=== PATIENT | female | born 1985 ===

== ENCOUNTER 2017-03-31 13:30 | Inpatient (IN) | payer OTHER ==
[2017-03-31] MEDS ORDERED: Sodium Chloride 0.9% 1,000 ML IV STA (15:20)
--- NOTE | 2017-03-31 15:20 | C.PDOC ---
History Of Present Illness 32 y/o F 7 weeks p/w nausea and vomiting x weeks. Has been on diclegis without improvement. Patient feels generally weak and dehydrated. Denies fever, chills, chest pain, dyspnea, abdominal pain, vaginal bleeding, diarrhea. Time Seen by Provider: 03/31/17 14:59 Chief Complaint (Nursing): GI Problem Past Medical History Vital Signs: Last Vital Signs Temp 99.1 F 03/31/17 17:39 Pulse 97 H 03/31/17 17:39 Resp 20 03/31/17 17:39 BP 112/78 03/31/17 17:39 Pulse Ox 98 03/31/17 18:05 Family History: States: No Known Family Hx - Social History Hx Alcohol Use: No Hx Substance Use: No - Immunization History Hx Tetanus Toxoid Vaccination: No Hx Influenza Vaccination: No Hx Pneumococcal Vaccination: No Review Of Systems Except As Marked, All Systems Reviewed And Found Negative. Constitutional: Negative for: Fever Respiratory: Negative for: Shortness of Breath Physical Exam - Physical Exam Additional Physical Exam Comments: Gen: NAD Head: NC Eyes: Sunken ENT: Dry MM Neck: Supple CV: Tachycardic, cap refill < 2 seconds Lungs: CTA b/l Abd: Soft, NT Extremities: No swelling Neuro: Alert, no focal deficit ED Course And Treatment - Laboratory Results Result Diagrams: 03/31/17 15:23 03/31/17 15:23 O2 Sat by Pulse Oximetry: 98 Medical Decision Making Medical Decision Making: Dr. Villegas accepts patient to her service for further hydration and IV antiemetic. Disposition Discussed With : Saige Villegas Doctor Will See Patient In The: Hospital - Disposition Disposition: HOSPITALIZED Disposition Time: 15:21 Condition: FAIR - Clinical Impression Clinical Impression: Hyperemesis gravidarum
[2017-03-31 15:30] LABS: BASO # 0.1 K/uL (0.0-0.2); BASO % 0.6 % (0.0-2.0); EOS % 0.4 % (0.0-4.0); HEMOGLOBIN 13.4 g/dL (11.0-16.0); LYMPH # 1.9 K/uL (1.0-4.3); LYMPH % 17.8 % (20.0-40.0); MEAN CELL VOLUME 88.9 fL (81.0-99.0); MEAN CORPUSCULAR HEMOGLOBIN 31.9 pg (27.0-31.0); MEAN CORPUSCULAR HGB CONC 35.9 g/dL (33.0-37.0); MEAN PLATELET VOLUME 9.4 fL (7.2-11.7); MONO # 0.8 K/uL (0.0-0.8); MONO % 7.2 % (0.0-10.0); NEUT # 7.9 K/uL (1.8-7.0); RBC 4.19 Mil/uL (3.80-5.20); RED CELL DISTRIBUTION WIDTH 12.6 % (11.5-14.5); WHITE BLOOD COUNT 10.7 K/uL (4.8-10.8)
[2017-03-31 15:42] LABS: ALB/GLOB RATIO 1.1 (1.0-2.1); ALBUMIN 4.1 g/dL (3.5-5.0); ALT/SGPT 19 U/L (9-52); AST/SGOT 22 U/L (14-36); BLOOD UREA NITROGEN 13 mg/dL (7-17); CALCIUM 9.3 mg/dl (8.6-10.4); GFR AFRICAN-AMERICAN > 60; GFR NON-AFRICAN AMERICAN > 60
--- NOTE | 2017-03-31 17:32 | US ---
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 Comparison: None available. Technique: Transabdominal pelvic ultrasound Findings: The uterus measures approximately 15.4 x 5.8 x 7.3 cm. Anteverted. Cervix length measures approximately 4.3 cm. There is a single intrauterine fetus present. 4 mm yolk sac. The gestational sac measures 4 cm and is compatible with a gestational age of 9 weeks 2 days. The crown-rump length measures 1.9 cm and is compatible with a gestational age of 8 weeks 3 days. There is heart motion which measured 176 BPM. The right ovary measures 3.1 x 1.7 x 2.9 cm. The left ovary measures 3.8 x 1.8 x 3.4 cm. Blood flow was demonstrated to both ovaries. Impression: Live single intrauterine with estimated gestational age 9 weeks 2 days by gestational sac calculation and 8 weeks 3 days by crown-rump length calculation. heart rate 176 bpm. Advise an anomaly screen at 16-18 weeks gestational age
[2017-03-31] MEDS ORDERED: Sodium Chloride 0.9% 1,000 ML IV SCH (19:00)
[2017-04-01] MEDS ORDERED: Multivitamin (MVI) 10 ML, Thiamine 100 MG, Folic Acid 1 MG in Sodium Chloride 0.9% 1,00... IV ONE (07:45)
[2017-04-01 08:26] LABS: SQUAMOUS EPITHIAL 1 /hpf (0-5); URINE BILIRUBIN NEGATIVE (NEGATIVE); URINE BLOOD NEGATIVE (NEGATIVE); URINE CLARITY Clear (Clear); URINE COLOR Yellow (YELLOW); URINE GLUCOSE (UA) NORMAL (Normal); URINE LEUKOCYTE ESTERASE NEG Leu/uL (Negative); URINE NITRATE NEGATIVE (NEGATIVE); URINE PROTEIN NEGATIVE (NEGATIVE)
--- NOTE | 2017-04-01 08:32 | PCM.SURG1 ---
Surgeon's Initial Post Op Note - Surgeon's Notes Surgeon: Saige Villegas MD Processing Rep: none Type of Anesthesia: General LMA Pre-Operative Diagnosis: Cervical intraeptihelia neoplasia RONALDO 3 Operative Findings: araml bipoys 1 oclcok, multiparous short cervix. urine 50cc clear yellow urine. specment ecto and edocervica removed, good hemostaiss Post-Operative Diagnosis: same as above Operation Performed: Loop electrosurgical exicsion procedure, endocerviacl currettage Specimen/Specimens Removed: ectocervix, endocervix, endocervical currettage Estimated Blood Loss: EBL {In ML}: 5 Blood Products Given: N/A Drains Used: No Drains Post-Op Condition: Good Date of Surgery/Procedure: 04/01/17 Time of Surgery/Procedure: 08:00
--- NOTE | 2017-04-01 10:41 | CP.PCM.HP ---
History of Present Illness - History of Present Illness History of Present Illness: Delyaed etnry 32 y/o @ 8= wks with perseinst nuase and vomiitng, failed outpatient regiment feelign weak and tired, with 3-5 times of non bloody non bilous ememse and refered to er for evauatin. pt rperots has failed vitamin b6, uncoms, zofran po, diclegis not covered with metoclompramed. Pt reports had severe nausevomiting last as wel.. OB: x 1, hx of molar YE[employer]: tushar PMH Henies PSH: iliana CH:D non tributiroy SHX: negative etoh/tobacco/drugs meds; vitma ib6, pnv, diclege, unozo, zofrna Present on Admission - Present on Admission Any Indicators Present on Admission: No Review of Systems - Constitutional Constitutional: As Per HPI - EENT Eyes: As Per HPI Ears: As Per HPI Nose/Mouth/Throat: As Per HPI - Cardiovascular Cardiovascular: As Per HPI Past Patient History - Infectious Disease Hx of Infectious Diseases: None - Past Medical History & Family History Past Medical History?: No - Past Social History Smoking Status: Never Smoked Alcohol: None Domestic Violence: Negative - CARDIAC Hx Cardiac Disorders: No - PULMONARY Hx Respiratory Disorders: No - NEUROLOGICAL Hx Neurological Disorder: No - ENDOCRINE/METABOLIC Hx Endocrine Disorders: No - HEMATOLOGICAL/ONCOLOGICAL Hx Blood Disorders: No Hx Blood Transfusions: No - MUSCULOSKELETAL/RHEUMATOLOGICAL Hx Musculoskeletal Disorders: No Hx Falls: No - GASTROINTESTINAL Hx Gastrointestinal Disorders: No - GENITOURINARY/GYNECOLOGICAL Hx Hematuria: No Other/Comment: Molar - PSYCHIATRIC Hx Substance Use: No - SURGICAL HISTORY Hx Surgeries: No - ANESTHESIA Hx Anesthesia: No Hx Anesthesia Reactions: No Meds Allergies/Adverse Reactions: Allergies Allergy/AdvReac Type Severity Reaction Status Date / Time No Known Allergies Allergy Verified 03/31/17 14:30 Physical Exam - Constitutional Appears: Well, Non-toxic - Head Exam Head Exam: ATRAUMATIC, NORMAL INSPECTION - Eye Exam Eye Exam: EOMI, Normal appearance - ENT Exam ENT Exam: Mucous Membranes Moist - Neck Exam Neck exam: Positive for: Normal Inspection - Respiratory Exam Respiratory Exam: Clear to Auscultation Bilateral, NORMAL BREATHING PATTERN - Cardiovascular Exam Cardiovascular Exam: REGULAR RHYTHM, +S1, +S2 - GI/Abdominal Exam GI & Abdominal Exam: Normal Bowel Sounds, Soft Additional comments: non tneder, no guaridng, no bourend tendnere no rigiyt Results - Vital Signs Recent Vital Signs: Last Vital Signs Temp 100.1 F H 04/01/17 08:06 Pulse 84 04/01/17 08:06 Resp 18 04/01/17 08:06 BP 94/61 L 04/01/17 08:06 Pulse Ox 99 04/01/17 08:06 - Labs Result Diagrams: 03/31/17 15:23 03/31/17 15:23 Labs: Laboratory Results - last 24 hr 03/31/17 03/31/17 04/01/17 15:23 15:23 07:47 WBC 10.7 RBC 4.19 Hgb 13.4 Hct 37.2 MCV 88.9 MCH 31.9 H MCHC 35.9 RDW 12.6 Plt Count 271 MPV 9.4 Neut % (Auto) 74.0 Lymph % (Auto) 17.8 L George % (Auto) 7.2 Eos % (Auto) 0.4 Baso % (Auto) 0.6 Neut # (Auto) 7.9 H Lymph # (Auto) 1.9 George # (Auto) 0.8 Eos # (Auto) 0.0 Baso # (Auto) 0.1 Sodium 131 L Potassium 3.5 L Chloride 93 L Carbon Dioxide 29 Anion Gap 12 BUN 13 Creatinine 0.6 L Est GFR ( Amer) > 60 Est GFR (Non-Af Amer) > 60 Random Glucose 115 H Calcium 9.3 Total Bilirubin 0.7 AST 22 ALT 19 Alkaline Phosphatase 54 Total Protein 8.0 Albumin 4.1 Globulin 3.9 Albumin/Globulin Ratio 1.1 Urine Color Yellow Urine Clarity Clear Urine pH 7.0 Ur Specific [place] 1.014 Urine Protein Negative Urine Glucose (UA) Normal Urine Ketones 1+ H Urine Blood Negative Urine Nitrate Negative Urine Bilirubin Negative Urine Urobilinogen 4.0 H Ur Leukocyte Esterase Neg Urine WBC (Auto) 2 Urine RBC (Auto) 3 Ur Squamous Epith Cells 1 Assessment & Plan (1) Hyperemesis gravidarum Assessment and Plan: 32 y/o @ 8+ wks with severe nause, vomitng in 1. admit ot rn gynecology 2. Diet; NPO, will advance as toelrated to clears etc 3. Labs; CBC, CMP, Amyplas, lipaes, UA 4. IVH Bananoma bag @ 125cc/hr 5. IV zofran 4mg q 4 hour s--> sublingual 6. Enoucrage mabution 7. SCD DVT prophyxis 8. Daily weights 9. US: vialbity Status: Acute
[2017-04-02 00:03] VITALS: BP 102/65; PULSE 83; RESP 20; TEMP 99.1; O2SAT 98
[2017-04-02 07:32] LABS: BASO % 0.5 % (0.0-2.0); EOS # 0.2 K/uL (0.0-0.7); EOS % 1.8 % (0.0-4.0); HEMOGLOBIN 11.7 g/dL (11.0-16.0); LYMPH # 1.9 K/uL (1.0-4.3); LYMPH % 22.9 % (20.0-40.0); MEAN CORPUSCULAR HEMOGLOBIN 31.7 pg (27.0-31.0); MEAN CORPUSCULAR HGB CONC 35.6 g/dL (33.0-37.0); MEAN PLATELET VOLUME 9.2 fL (7.2-11.7); MONO # 0.5 K/uL (0.0-0.8); MONO % 6.6 % (0.0-10.0); NEUT # 5.6 K/uL (1.8-7.0); NEUT % 68.2 % (50.0-75.0); NRBC % 0.1 % (0.0-2.0); RBC 3.69 Mil/uL (3.80-5.20); RED CELL DISTRIBUTION WIDTH 12.3 % (11.5-14.5); WHITE BLOOD COUNT 8.3 K/uL (4.8-10.8)
[2017-04-02 07:59] LABS: ALBUMIN 3.4 g/dL (3.5-5.0); ALT/SGPT 27 U/L (9-52); AST/SGOT 22 U/L (14-36); BLOOD UREA NITROGEN 5 mg/dL (7-17); CALCIUM 8.7 mg/dl (8.6-10.4); GFR AFRICAN-AMERICAN > 60; GFR NON-AFRICAN AMERICAN > 60
[2017-04-02] MEDS ORDERED: Multivitamin (MVI) 10 ML, Thiamine 100 MG, Folic Acid 1 MG in Sodium Chloride 0.9% 1,00... IV ONE (10:33)
== END 2017-04-02 17:30 | disposition home or self-care (01) | DRG 781 ==
LOC: C.ER 13:30 → C.4M 15:57
PROVIDERS: ADMIT Obstetrics & Gynecology; ATTEND Obstetrics & Gynecology
DX: O21.1 Hyperemesis gravidarum with metabolic disturbance (principal); Z3A.09 9 weeks gestation of pregnancy

== ENCOUNTER 2017-10-26 03:40 | Inpatient (IN) | payer OTHER, MEDICAID ==
--- NOTE | 2017-10-26 04:40 | OBADHP ---
Datetime: 10/26/2017 04:22 Admit Comment, IP Provider: 37 y/o at 38.6 wks presents with c/o LOF around 1:30 am and pain ful ctx started aroiund the same time. Pt has no cother complaints today. Pt received PNC with Dr amber adams. PMH: adan PSH: D_C for molar POBH: x 1 ALL:NKDA Labs: O positive, RPRP NR, HIV NR, Hep B Negativem Rubella immune A/P : 37 y/o at 38.5 wks with SROM Admit to L_D Bllod work IVF monitoring and toco Inform Dr Villegas Anticipate Pelvic Type - PN: Adequate Extremities - PN: Normal Abdomen - PN: Normal Back - PN: Normal Breast - PN: Normal Lungs - PN: Normal Heart - PN: Normal Thyroid - PN: Normal Neurologic - PN: Normal HEENT - PN: Normal General - PN: Normal Presentation-Admit: Vertex FHR - Baseline A Provider: 130 Amniotic Fluid Color, Provider: Clear Membranes, Provider: Ruptured Contraction Comments Provider: every 4 min Comments, ACOG Physical Exam: ABD: Soft, NT EXTR: No calf tenderness SSE: Pooling VE: 3/80/-2 Gestation - Est Wks by US: 38.6 Pool Provider: Positive Nitrazine Provider: Positive Vital Signs Provider: Reviewed; Within Normal Limits IP Chief Complaint: Uterine contractions; Suspected ruptured membranes NICHD Variability Prov Fetus A: Moderate 6-25bpm NICHD Accel Fetus A IP Provider: [id number] FHR Category Provider Fetus A: Category I NICHD Decel Fetus A IP Provider: Early Dilatation, Provider: 3 Effacement, Provider: 80 Station, Provider: -2 Genitourinary Exam: Normal DTRs - PN: Normal EGA AdmitDate IP: 38.5 IP Adm Impression: Term, intrauterine ; Ruptured Membranes IP Admit Plan: Initiate labor protocol
[2017-10-26] MEDS ORDERED: Lactated Ringer's 1,000 ML IV ONE (04:45)
[2017-10-26] MEDS ORDERED: Lactated Ringer's 1,000 ML IV SCH (04:45)
[2017-10-26 05:18] LABS: BASO # 0.1 K/uL (0.0-0.2); BASO % 0.8 % (0.0-2.0); EOS # 0.1 K/uL (0.0-0.7); EOS % 1.2 % (0.0-4.0); HEMOGLOBIN 11.7 g/dL (11.0-16.0); LYMPH # 1.8 K/uL (1.0-4.3); LYMPH % 19.4 % (20.0-40.0); MEAN CELL VOLUME 88.7 fL (81.0-99.0); MEAN CORPUSCULAR HEMOGLOBIN 30.9 pg (27.0-31.0); MEAN CORPUSCULAR HGB CONC 34.9 g/dL (33.0-37.0); MONO # 0.8 K/uL (0.0-0.8); MONO % 8.9 % (0.0-10.0); NEUT # 6.5 K/uL (1.8-7.0); NEUT % 69.7 % (50.0-75.0); NRBC % 0.2 % (0.0-2.0); RBC 3.78 Mil/uL (3.80-5.20); RED CELL DISTRIBUTION WIDTH 12.7 % (11.5-14.5); SQUAMOUS EPITHIAL < 1 /hpf (0-5); URINE BACTERIA RARE (<OCC); URINE BILIRUBIN NEGATIVE (NEGATIVE); URINE CLARITY Clear (Clear); URINE COLOR Straw (YELLOW); URINE GLUCOSE (UA) NORMAL (Normal); URINE LEUKOCYTE ESTERASE NEG Leu/uL (Negative); URINE PROTEIN NEGATIVE (NEGATIVE); URINE UROBILINOGEN NORMAL mg/dL (0.2-1.0); WHITE BLOOD COUNT 9.3 K/uL (4.8-10.8)
[2017-10-26 05:21] LABS: URINE BLOOD 2+ (NEGATIVE)
[2017-10-26 05:30] LABS: CALCIUM 9.1 mg/dl (8.6-10.4); GFR NON-AFRICAN AMERICAN > 60
[2017-10-26 06:19] LABS: ALBUMIN 3.5 g/dL (3.5-5.0); ALT/SGPT 13 U/L (9-52); AST/SGOT 27 U/L (14-36); BLOOD UREA NITROGEN 10 mg/dL (7-17)
[2017-10-26] MEDS ORDERED: Bupivacaine HCl/FentaNYL Cit 100 ML EPI ONE (06:43)
[2017-10-26] MEDS ORDERED: Oxytocin 30 UNIT 30 UNITS/500 ML BAG IV ONE (08:15)
[2017-10-26] MEDS ORDERED: Oxytocin 10 Units/ml Inj ONE (08:28)
[2017-10-26] MEDS ORDERED: Lidocaine 2% MPF (5 ml) Inj ONE (08:28)
--- NOTE | 2017-10-26 08:35 | OBPN ---
Datetime: 10/26/2017 08:21 IP Progress Impression: Normal progression of labor IP Procedures: Sterile Vag Exam IP Progress Plan: Continue present management; Anticipate Vaginal Delivery Membranes, Provider: Ruptured Contraction Comments Provider: every 4 minutes FHR - Baseline A Provider: 150 Gestation - Est Wks by US: 38w 5d Presentation-Admit: Vertex IP Progress Note Comment: Patient received in LDR#3, first encounter at approximately 0735 hours: S/ P epidural, tracing noted for variable decelerationsvery comfortable Cervical exam 0735 hours: 7-80/0. FHR improved with scalp stimulation; noted for early decelerations, baseline 150 bpm; variability improved. (patient in left lateral position, IVF bolus just completed, oxygen mask on) - Case D/W Dr. Villegas: start pitocin FHR noted for deceleration to 90 bpm x 6 minutes. Patient on right lateral, switched to left - cervical exam: 90/0. FHR 140 bpm with scalp stimulation. Pitocin discontinued. Assessment: 32 y.o. P1, 38w 5d, rapid progression of labor. FHR responds well to scalp stimulation . Patient near end of Stage 1 of labor. Clinically stable. Plan: 1) anticipate vaginal delivery - Dr. Villegas is aware Vital Signs Provider: Reviewed; Within Normal Limits FHR Category Provider Fetus A: Category I NICHD Variability Prov Fetus A: Moderate 6-25bpm Dilatation, Provider: 9 Effacement, Provider: 90 Station, Provider: 0 NICHD Decel Fetus A IP Provider: Early Datetime: 10/26/2017 04:22 Pool Provider: Positive Nitrazine Provider: Positive Amniotic Fluid Color, Provider: Clear NICHD Accel Fetus A IP Provider: [id number]
[2017-10-26] MEDS ORDERED: Benzocaine/Menthol 20%-0.5% Topical Spray (60 ml) TOP PRN (08:53)
[2017-10-26] MEDS ORDERED: Oxycodone/Acetaminophen 5/325 mg Tab PO PRN ×2 (08:53)
--- NOTE | 2017-10-26 08:53 | OBDS ---
MATERNAL INFORMATION Provider Comments: pt was fullly diltaed and pushing. aturtai,c spontanoeus deliver of head in OA po sition, nuchal cordx5 noted and body x 1looseend. Atruamtic, spontaneous dlieveyr of anterior follo wd by posteiror shouler followed by delivery of body. boht oral and nasal pasages of baby bulb suctio kevin. ubmcils cord clampd and cut. baby handed ot mother on abdmen with rn assistance. cord blood adn cord gases collected and sent x 2. Spotnaeous deliveyr of intact placenta with membranes. Fundus firm , good hemostais.first degree perineal laceratin repaired with 2-c hormic. goo dhemoasis, no compclii caiotn. live femlae infnat. apars 9,9 . ebl 300ml LABOR SUMMARY EDC: 11/04/2017 00:00 No. Babies in Womb: 1 LABOR INFORMATION Group B Beta Strep: Done, Result Unknown MEMBRANES Membranes Rupture Method: Spontaneous Rupture of Membranes: 10/26/2017 02:30 Amniotic Fluid Color: Clear
[2017-10-27 08:55] LABS: BASO % 0.2 % (0.0-2.0); EOS # 0.1 K/uL (0.0-0.7); EOS % 1.1 % (0.0-4.0); HEMOGLOBIN 10.6 g/dL (11.0-16.0); LYMPH # 2.1 K/uL (1.0-4.3); LYMPH % 17.9 % (20.0-40.0); MEAN CELL VOLUME 90.4 fL (81.0-99.0); MEAN CORPUSCULAR HEMOGLOBIN 31.4 pg (27.0-31.0); MEAN CORPUSCULAR HGB CONC 34.7 g/dL (33.0-37.0); MONO # 0.7 K/uL (0.0-0.8); MONO % 6.2 % (0.0-10.0); NEUT # 8.6 K/uL (1.8-7.0); NEUT % 74.6 % (50.0-75.0); RBC 3.39 Mil/uL (3.80-5.20); RED CELL DISTRIBUTION WIDTH 12.6 % (11.5-14.5); WHITE BLOOD COUNT 11.6 K/uL (4.8-10.8)
[2017-10-28 08:49] VITALS: BP 118/73; PULSE 77; RESP 18; O2SAT 99
[2017-10-28 22:04] VITALS: TEMP 98.5
== END 2017-10-28 17:10 | disposition home or self-care (01) | DRG 775 ==
LOC: C.EROB 03:40 → C.4D 04:45 → C.4M 10:58
PROVIDERS: ADMIT Obstetrics & Gynecology; ATTEND Obstetrics & Gynecology
PROC: 10E0XZZ Delivery of Products of Conception, External Approach (ICD-10-PCS; principal; 2017-10-26)
PROC: 0HQ9XZZ Repair Perineum Skin, External Approach (ICD-10-PCS; 2017-10-26)
DX: O69.1XX0 Labor and delivery complicated by cord around neck, with compression, not applicable or unspecified (principal); O70.0 First degree perineal laceration during delivery; Z3A.38 38 weeks gestation of pregnancy; Z37.0 Single live birth